=== PATIENT | female | born 1955 | race Caucasian/White ===

== ENCOUNTER 2019-02-22 08:41 | Emergency (ER) | payer MEDICARE, BC ==
[2019-02-22 08:59] VITALS: BP 120/58
--- NOTE | 2019-02-22 09:14 | UC ---
Lower Extremity/Ankle HPI - HPI Summary HPI Summary: tripped off step last evening and injured L foot. "rolled it" . now swollen, painful. did elevate foot and apply annmarie wrap - History of Current Complaint Chief Complaint: UCLowerExtremity Stated Complaint: L ANKLE INJ Time Seen by Provider: 02/22/19 08:54 Hx Obtained From: Patient ?: No Onset/Duration: Sudden Onset Severity Initially: Moderate Severity Currently: Mild Pain Intensity: 1 Aggravating Factor(s): Standing, Ambulation Alleviating Factor(s): Elevation, Ice Able to Bear Weight: Yes - with pain - Allergies/Home Medications Allergies/Adverse Reactions: Allergies Allergy/AdvReac Type Severity Reaction Status Date / Time No Known Allergies Allergy Verified 02/22/19 08:59 Home Medications: Home Medications NK [No Home Medications Reported] 02/22/19 [History Confirmed 02/22/19] PMH/Surg Hx/FS Hx/Imm Hx Previously Healthy: Yes - Surgical History Surgery Procedure, Year, and Place: c section. appy. tonsils - Family History Known Family History: Positive: Non-Contributory - Social History Occupation: Employed Full-time Lives: With Family Alcohol Use: Daily Substance Use Type: None Smoking Status (MU): Never Smoked Tobacco Review of Systems All Other Systems Reviewed And Are Negative: Yes Constitutional: Positive: Negative Skin: Positive: Negative Respiratory: Positive: Negative Cardiovascular: Positive: Negative Musculoskeletal: Positive: Other: - L foot pain Neurological: Positive: Negative Psychological: Positive: Negative Is Patient Immunocompromised?: No Physical Exam Triage Information Reviewed: Yes Appearance: Well-Appearing, No Pain Distress, Well-Nourished Vital Signs: Initial Vital Signs Temp 98.4 F 02/22/19 08:55 Pulse 69 02/22/19 08:55 Resp 18 02/22/19 08:55 BP 120/58 02/22/19 08:55 Pulse Ox 100 02/22/19 08:55 Vital Signs Reviewed: Yes Respiratory Exam: Normal Respiratory: Positive: Lungs clear Cardiovascular Exam: Normal Cardiovascular: Positive: RRR Musculoskeletal: Positive: ROM Limited @ - L foot d/t pain, Other: - swelling, tenderness, and ecchymosis L lateral foot Neurological Exam: Normal Psychological Exam: Normal Skin Exam: Normal Diagnostics - Radiology No standard instances Radiology Interpretation Completed By: Radiologist - IMPRESSION: EQUIVOCAL LUCENCY AT THE BASE OF THE FIFTH MTP IS LIKELY RELATED TO SUPERIMPOSITION ARTIFACT. IF THE PATIENT'S PAIN PERSISTS SHORT-TERM REPEAT IMAGING IS RECOMMENDED. Lower Extremity Course/Dx - Differential Dx/Diagnosis Differential Diagnosis/HQI/PQRI: Contusion, Fracture (Closed), Strain Provider Diagnosis: Strain of left foot Discharge ED - Sign-Out/Discharge Documenting (check all that apply): Patient Departure All imaging exams completed and their final reports reviewed: Yes - abnormal lucency L 5th metatarsal, equivicol for fracture - Discharge Plan Condition: Stable Disposition: HOME Patient Education Materials: Muscle Strain (ED) Referrals: Meena Padilla MD [Primary Care Provider] - Erin Lopez MD [Medical Doctor] - (call tomorrow for orthopedic follow-up) Additional Instructions: ice and elevate foot There is a possibility you have a small fracture in your foot ; make sure you follow-up with orthopedics make sure to use orthopedic shoe we gave you when standing/walking ibuprofen 600mg as needed for pain every 6 hours - Billing Disposition and Condition Condition: STABLE Disposition: Home - Attestation Statements Provider Attestation: I was available for consult. This patient was seen by the ANEL. The patient was not presented to , seen by or examined by or -Juventino Hunt MD
== END 2019-02-22 10:15 | disposition home or self-care (01) ==
LOC: UCEAST 08:41
DX: S96.912A Strain of unspecified muscle and tendon at ankle and foot level, left foot, initial encounter (principal); W10.9XXA Fall (on) (from) unspecified stairs and steps, initial encounter; Y92.9 Unspecified place or not applicable
CPT/HCPCS: 99212; G0463

== ENCOUNTER 2024-06-04 09:04 | Observation (INO) ==
[2024-06-04] MEDS: Lactated Ringers 1000 ml BAG 1,000 ML IV ONE (09:39)
[2024-06-04 09:59] LABS: Hematocrit 49.4 % (35-45); Hemoglobin 16.6 g/dL (11.5-14.3); Mean Corpuscular Hgb Conc 33.7 g/dL (31-36); Red Blood Count 5.37 10^6/uL (3.63-4.92); White Blood Count 10.3 10^3/uL (3.8-11.8)
[2024-06-04 10:29] LABS: ALT 38 U/L (7-52); Albumin 4.2 g/dL (3.5-5.7); Alkaline Phosphatase 81 U/L (35-149); Anion Gap 9 mmol/L (2-16); Blood Urea Nitrogen 14 mg/dL (6-24); CO2 Carbon Dioxide 32 mmol/L (22-32); Calcium 10.2 mg/dL (8.6-10.3); Chloride 101 mmol/L (101-111); Creatinine, Serum 0.68 mg/dL (0.51-0.95); Globulin 2.1 g/dL (2-4); Glucose 108 mg/dL (70-100); Sodium 142 mmol/L (135-145); Total Bilirubin 0.6 mg/dL (0.2-1.0); Total Protein 6.3 g/dL (6.4-8.9); eGFR CKD-EPI 93.1 (>60)
[2024-06-04 10:41] LABS: ABS Basophils 0.1 10^3/uL (0.0-0.1); ABS Eosinophils 0.1 10^3/uL (0.0-0.5); ABS Lymphocytes 1.4 10^3/uL (1.0-4.8); ABS Monocytes 0.8 10^3/uL (0.0-0.9); ABS Neutrophils 7.9 10^3/uL (1.5-7.6); ABS Nucleated RBC 0.01 10^3/ul; Mean Platelet Volume 7.1 fL (7.5-11.2); Nucleated Red Blood Cells % 0.1 %/100WBC (0.0-0.8); Platelet Count 858 10^3/uL (150-450)
[2024-06-04 11:46] LABS: Potassium Redraw 4.7 mmol/L (3.5-5.0)
[2024-06-04 11:47] LABS: Urine Appearance Clear; Urine Bilirubin Negative (Negative); Urine Blood Negative (Negative); Urine Color Light-Yellow; Urine Glucose Negative (Negative); Urine Ketones Negative (Negative); Urine Nitrite Negative (Negative); Urine Protein Negative (Negative); Urine Urobilinogen Negative (Negative); Urine pH 6.5 (5.0-8.0)
[2024-06-04 11:57] LABS: Urine Bacteria 1+ /HPF (Absent); Urine Red Blood Cell Trace(0-2/hpf) /HPF (0-Trace); Urine Squamous Epithelial Cell Present /HPF (Absent); Urine White Blood Cell 3+(>20/hpf) /HPF (0-Trace)
[2024-06-04] MEDS: cefTRIAXone 1 gm/50 mL D5W 1 GM/50 ML BAG IV ONE (12:34)
[2024-06-04] MEDS: Carbidopa/Levodop 25/100 MG TAB PO SCH (13:50)
[2024-06-04] MEDS: Lactated Ringers 1000 ml BAG 1,000 ML IV SCH (13:50)
[2024-06-04] MEDS: Senna TAB 8.6 mg TAB PO PRN (20:05)
[2024-06-05 05:57] LABS: ABS Basophils 0.1 10^3/uL (0.0-0.1); ABS Eosinophils 0.2 10^3/uL (0.0-0.5); ABS Lymphocytes 2.4 10^3/uL (1.0-4.8); ABS Monocytes 0.7 10^3/uL (0.0-0.9); ABS Neutrophils 5.8 10^3/uL (1.5-7.6); Eosinophil % 2.7 %; Hemoglobin 15.4 g/dL (11.5-14.3); Lymphocyte % 25.9 %; Mean Corpuscular Hemoglobin 30.6 pg (27-33); Mean Corpuscular Hgb Conc 33.4 g/dL (31-36); Mean Corpuscular Volume 91.6 fL (80-97); Mean Platelet Volume 6.8 fL (7.5-11.2); Platelet Count 832 10^3/uL (150-450); Red Blood Count 5.03 10^6/uL (3.63-4.92); White Blood Count 9.2 10^3/uL (3.8-11.8)
[2024-06-05 06:51] LABS: Calcium 9.4 mg/dL (8.6-10.3); Creatinine, Serum 0.67 mg/dL (0.51-0.95); Potassium 4.7 mmol/L (3.5-5.0); eGFR CKD-EPI 93.4 (>60)
[2024-06-05] MEDS ORDERED: cefTRIAXone 1 gm/50 mL D5W 1 GM/50 ML BAG IV SCH (12:00)
[2024-06-05] MEDS: cefTRIAXone 1 gm/50 mL D5W 1 GM/50 ML BAG IV SCH (12:50)
[2024-06-05] MEDS: Enoxaparin 40 MG/0.4 ML SYR SUBCUT SCH (12:50)
[2024-06-05 13:21] VITALS: BP 137/74
== END 2024-06-05 15:05 | disposition home or self-care (01) ==
LOC: EDHOLD 09:04 → ED 09:04 → MEDTELE 14:25
PROVIDERS: ADMIT Hospitalist; ATTEND Hospitalist